=== PATIENT | male | born 1975 | race Caucasian/White ===

== ENCOUNTER 2016-03-27 02:28 | Emergency (ER) | payer BC ==
[~2016-03-27] VITALS: Ht 167.6 cm; Wt 68.2 kg
[~2016-03-27 02:28] MED LIST: CEFTIN500 MG PO
[2016-03-27] MEDS ORDERED: PROTONIX 40MG T40 MG PO (03:00)
[2016-03-27] MEDS ORDERED: NUVIGIL150 MG (03:00)
[2016-03-27 03:30] VITALS: BP 132/89; PULSE 87; TEMP 96.9
== END 2016-03-27 03:38 | disposition home or self-care (01) ==
LOC: COL.ER 02:28
DX: G43.909 Migraine, unspecified, not intractable, without status migrainosus (principal)
CPT/HCPCS: J1885; J2060; J2405; J7030